=== PATIENT | male | born 1995 | race Caucasian/White ===

== ENCOUNTER 2020-02-24 12:01 | Emergency (ER) | payer MEDICAID ==
[~2020-02-24] VITALS: Ht 180.3 cm; Wt 90.9 kg
[~2020-02-24 12:01] MED LIST: IBUP-1051 PO
[2020-02-24 12:12] VITALS: BP 109/59
[2020-02-24] MEDS ORDERED: HYDR28CR14 TOP (14:27)
[2020-02-24] MEDS ORDERED: KEN0.1O TP (14:27)
[2020-02-24] MEDS ORDERED: CETI10TA18 PO (14:27)
== END 2020-02-24 14:43 | disposition home or self-care (01) ==
LOC: ER 12:02
DX: L30.9 Dermatitis, unspecified (principal); Z79.899 Other long term (current) drug therapy
CPT/HCPCS: 99283